=== PATIENT | female | born 2000 | race Caucasian/White ===

== ENCOUNTER 2025-09-23 11:32 | Emergency (ER) | payer SELFPAY ==
[2025-09-23 11:37] VITALS: BP 125/82; PULSE 103; TEMP 36.4; O2SAT 99; BMI 21.6
--- NOTE | 2025-09-23 11:50 | ED_ITS ---
HPI - Abdominal Pain General Chief Complaint: Abdominal Pain Stated Complaint: back pain Time Seen by Provider: 09/23/25 11:45 Source: patient Mode of arrival: walk-in Limitations: no limitations History of Present Illness HPI narrative: Patient mentioned that she has been having left lower quadrant pain for the last few days but over the last 24 hours started going to the left flank, no vomiting and no fever no chills Denies any diarrhea or constipation , and she mentioned that she has been hydrating well Related Data Previous Rx's ?Medication ?Instructions ?Recorded ciprofloxacin HCl 500 mg tablet 500 mg PO BID #14 tabs 09/23/25 Allergies Allergy/AdvReac Type Severity Reaction Status Date / Time No Known Drug Allergies Allergy Verified 09/23/25 11:36 Review of Systems ROS Status of ROS 10 or more systems reviewed and unremark able except as noted in history and below PFSH PFSH Social History Little interest or pleasure in doing things: not at all Feeling down, depressed, or hopeless: not at all Exam Narrative Exam Narrative: Nurses notes and vital signs reviewed and patient is not hypoxic. General: Well-appearing and in no apparent distress. Skin: Warm, dry, no pallor noted. No rash. Head: Normocephalic, atraumatic. Neck: Supple, non-tender. Eye: Pupils are equal, round and EOMI. No scleral icterus. Ears, Nose, Mouth, and Throat: TM are clear, no nasal mucosal hypertrophy. Oral mucosa is moist, no posterior oropharynx erythema, uvula is mid-line Cardiovascular: Regular Rate and Rhythm without murmur, gallop or rub. Respiratory: No accessory muscle use or respiratory distress. Lungs are clear to auscultation, no wheezing, rales or rhonchi Chest Wall: no tenderness Back: No midline thoracic or lumbar vertebral tenderness. No CVA tenderness Musculoskeletal: normal ROM, no calf or popliteal tenderness, no lower extremity edema/swelling GI: Abdomen is soft, non-distended. Normal bowel sounds. No masses appreciated. No significant tenderness on palpation of the left lower quadrant as well as the left flank Neurological: A&O x4. No cranial nerve dysfunction observed. No truncal ataxia. Moves all extremities. Sensation intact. Psychiatric: Cooperative and interactive. Normal mood and affect. Constitutional Vital Signs, click to edit/add: Last Vital Signs Temp 97.6 F 09/23/25 11:37 Pulse 103 H 09/23/25 11:37 Resp 18 09/23/25 11:37 BP 125/82 09/23/25 11:37 Pulse Ox 99 09/23/25 11:37 O2 Del Method Room Air 09/23/25 11:37 Course Vital Signs Vital signs: Vital Signs Temperature 97.6 F 09/23/25 11:37 Pulse Rate 103 H 09/23/25 11:37 Respiratory Rate 18 09/23/25 11:37 Blood Pressure 125/82 09/23/25 11:37 Pulse Oximetry 99 09/23/25 11:37 Oxygen Delivery Method Room Air 09/23/25 11:37 Temperature 97.6 F 09/23/25 11:37 Pulse Rate 103 H 09/23/25 11:37 Respiratory Rate 18 09/23/25 11:37 Blood Pressure 125/82 09/23/25 11:37 Pulse Oximetry 99 09/23/25 11:37 Oxygen Delivery Method Room Air 09/23/25 11:37 MDM - Abdominal Pain MDM Narrative Medical decision making narrative: The patient CBC and chemistry showed no acute pathology Urine is positive for UTI and the test was negative The CAT scan of the abdomen pelvis without contrast: No bowel obstruction or obstructive uropathy. The left ureter is mildly prominent with periureteral fat stranding. There is no evidence of obstructing stone. This may represent sequelae of an ascending urinary tract infection. No free fluid or free air. I did discuss the results with the patient I did describe to her that she need to make sure that she is not holding her urine which she mentioned that she does that usually at work because she have to wait to go to the bathroom I explained to her that right now she is putting herself at risk of pyelonephritis although right now there is no signs of systemic infection and the patient was started right away on ciprofloxacin She was instructed that in case of any fever or increasing pain she is to come back to the ER No leukocytosis no significant symptoms except for the pain , but the patient to come back in case of any worsening of symptoms including fever The patient to follow-up with the primary care within 2 to 3 days and to come back to the ER in case of any worsening of the current symptoms or any new symptoms or concerns Lab Data Labs: Lab Results 09/23/25 09/23/25 Range/Units 11:58 12:10 WBC 10.3 (4.0-11.0) 10^3/uL RBC 4.34 (4.20-5.40) 10^6/uL Hgb 13.1 (12.0-16.0) g/dL Hct 40.3 (36.0-48.0) % MCV 92.9 (81.0-99.0) fL MCH 30.2 (26.7-34.0) pg MCHC 32.5 (29.9-35.2) g/dL RDW 12.9 (11.0-15.0) % Plt Count 309 (150-450) 10^3/uL MPV 11.6 (9.5-13.5) fL Neut % (Auto) 77.6 H (43.0-75.0) % Lymph % (Auto) 13.1 L (20.5-60.0) % [place] % (Auto) 8.2 (1.7-12.0) % Eos % (Auto) 0.5 L (0.9-7.0) % Baso % (Auto) 0.4 (0.2-2.0) % Neut # (Auto) 8.0 H (1.4-6.5) 10^3/uL Lymph # (Auto) 1.4 (1.2-3.8) 10^3/uL [place] # (Auto) 0.9 H (0.3-0.8) 10^3/uL Eos # (Auto) 0.1 (0.0-0.7) 10^3/uL Baso # (Auto) 0.0 (0.0-0.1) 10^3/uL Abs Immat Gran (auto) 0.02 (0.00-0.03) 10^3/uL Imm/Tot Granulo (auto) 0.2 (0.0-0.5) % Sodium 140 (136-145) mmol/L Potassium 4.3 (3.5-5.1) mmol/L Chloride 107 (98-107) mmol/L Carbon Dioxide 24.2 (21.0-32.0) mmol/L Anion Gap 13.1 BUN 14.0 (7.0-18.0) mg/dL Creatinine 0.76 (0.55-1.02) mg/dL Est GFR ( Amer) >60 (>=60 mL/min/1.73m^2) Est GFR (Non-Af Amer) >60 (>=60 mL/min/1.73m^2) BUN/Creatinine Ratio 18.4 Glucose 95 (74-106) mg/dL Calcium 8.4 L (8.5-10.1) mg/dL Total Bilirubin 0.4 (0.2-1.0) mg/dL AST 10 L (15-37) U/L ALT 19 (14-59) U/L Alkaline Phosphatase 80 (46-116) U/L Total Protein 6.8 (6.4-8.2) g/dL Albumin 3.7 (3.4-5.0) g/dL Globulin 3.1 g/dL Albumin/Globulin Ratio 1.2 Serum HCG, Qual Negative (NEGATIVE) Urine Color Lt. yellow (YELLOW) Urine Clarity Sl cloudy (CLEAR) Urine pH 6.0 (5.0-9.0) Ur Specific [place] 1.025 (1.005-1.025) Urine Protein 100 A (NEG/TRACE) mg/dL Urine Glucose (UA) Negative (NEGATIVE) mg/dL Urine Ketones Negative (NEGATIVE) mg/dL Urine Occult Blood Large A (NEGATIVE) Urine Nitrite Negative (NEGATIVE) Urine Bilirubin Negative (NEGATIVE) Urine Urobilinogen 0.2 (0.2-1.0) EU/dL Ur Leukocyte Esterase Moderate A (NEGATIVE) Urine RBC 10-20 A (0-2) #/HPF Urine WBC 50-75 A (NONE SEEN) #/HPF Ur Squamous Epith Cells Few A (NONE/RARE) #/LPF Urine Crystals None seen (None Seen) #/HPF Urine Bacteria Moderate A (NONE SEEN) #/HPF Urine Casts None seen (NONE SEEN) #/LPF Urine Mucus None seen (NONE SEEN) [place] Discharge Chief Complaint: Abdominal Pain Clinical Impression: UTI (urinary tract infection) Patient Disposition: Home, Self-Care Time of Disposition Decision: 13:34 Condition: Good Mode of Transportation: Private Vehicle Prescriptions / Home Meds: New ciprofloxacin HCl 500 mg tablet 500 mg PO BID Qty: 14 0RF Print Language: Bangladeshi Instructions: Urinary Tract Infection in Women (DC) Referrals: Physician,Non-Staff, [Primary Care Provider] - 1 week Discharge Date/Time: 09/23/25 13:42
[2025-09-23] MEDS: KETOROLAC TROMETHAMINE 30 MG/ML VIAL IM (11:56)
--- OUTSIDE RECORDS SUMMARY | 2025-09-23 12:00 | XMS_ITS | Clinical Summary ---
Author Organization [facility] tem Address [id number] 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 10 tablet 03/05/2024ctive benzocaine-menthoL (CHLORASEPTIC SORE THROAT) 6-10 mg lozenge Dissolve 1 lozenge in the mouth every 2 (two) hours as needed for sore throat. 100 tablet 10/03/2024ctive Social History Tobacco UseTypesPacks/DayYears UsedDateSmoking Tobacco: NeverSmokeless Tobacco: Never Tobacco Cessation:Counseling Given: Not Answered Alcohol UseStandard Drinks/WeekCommentsNot Currently0 (1 standard drink = 0.6 oz pure alcohol)Hunger ScreeningAnswerDate RecordedWithin the past 12 months we worried whether our food would run out before we got money to buy more.Never True05/21/2025Within the past 12 months the food we bought just didn't last and we didn't have money to get more.Never True05/21/2025CommentsNoSex and Gender InformationValueDate RecordedSex Assigned at BirthNot on fileLegal Sex Yqtqlo2703/05/2024 1:11 AM EDTGender IdentityNot on fileSexual OrientationNot on file Last Filed Vital Signs Vital SignReadingTime TakenCommentsBlood Leqzqirq079/8905/21/2025 3:24 PM EDT Tljit33470/03/2025 3:24 PM DMAFhawfkdxrkf45.9 ??C (98.4 ??F)05/21/2025 3:24 PM EDTRespiratory Gxeu240005/21/2025 3:24 PM EDTOxygen Vrttofywpd42%05/21/2025 3:24 PM EDTInhaled Oxygen Concentration--Omkdbz28 kg (130 lb)05/21/2025 3:24 PM EDT Fqxqyh128.1 cm (5' 5 )05/21/2025 3:24 PM EDTBody Mass Index21.63005/21/2025 3:24 PM EDT Plan of Treatment Health MaintenanceDue DateLast DoneCommentsDepression Omuxmrwfo77/14/2015Pap Smear2023TaP,Tdap and Td Vaccines (7 - Td or Tdap)/, 03/03/2008, 03/22/2004, Additional history existsCOVID-19 Vaccine ( season)/Influenza Ukxbtyo31/, 08/28/2007, 10/26/2006, Additional history existsAdult BMI Elgozndqk05 Tobacco Fdvmreien01 Medical Devices Not on file Care Teams Team MemberRelationshipSpecialtyStart DateEnd Date No Pcp, [place] [id number] [facility]
--- OUTSIDE RECORDS SUMMARY | 2025-09-23 12:00 | XMS_ITS | Patient Health Record ---
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 Phone Juarez Bravo Primary Care Provider Reason For Referral No Information Medications Medication SIG (Take, Route, Frequency, Duration) Notes Start Date End Date Status Budesonide 32 MCG/ACT Suspension 1 spray in each nostril Nasally Once a day; Duration: 30 day(s) ActiveBactrim DS 800-160 mg 10 d DS 800-160 mg Tabletsone tab orally twice a day; Duration: 10 daysActive Social History Tobacco Use: Social History Observation Description Date Details (start date - stop date) Never Smoker NA - NA Social History GeneralSocial InfoQuestionAnswerNotesTransition of Care:ER/UC/hospital since last office visit?NoSubstance abuse/mental health issues of patient/family Patient -DeniesAbility to understand healthcare/treatmentPatient:GoodTobacco Screen:Are you a:never smokerSocial/Support Concerns:Patient:NoAlcohol Screening:Did you have a drink containing alcohol in the past year?NoPoints0 InterpretationNegativeBehaviors affecting healthPoor/Risky Behaviors:Denies- Communication Barrier:Language Barrier?:No Problems Problem Type SNOMED Code ICD Code Onset Dates Problem Status W/U Status Risk Notes Problem Unprotected sexual i ntercourse (8458493) Unprotected sexual intercourse (Z72.51) Activeconfirmed Plan Of Treatment No Information Insurance Providers Payer Name Payer Address Payer Phone Subscriber Number Group Number Insured Name Patient Relationship to Insured Coverage Start Date Coverage End Date [employer] [address] [address] [place] [phone] [id number] LUIS ALFREDO COLE Child - Insured has Financial Responsibility 0
[2025-09-23 12:21] LABS: Hematocrit 40.3 % (36.0-48.0); Hemoglobin 13.1 g/dL (12.0-16.0); Immature Granulocytes Abs Auto 0.02 10^3/uL (0.00-0.03); Immature Granulocytes Pct Auto 0.2 % (0.0-0.5); Lymphocytes Absolute Auto 1.4 10^3/uL (1.2-3.8); Mean Corpuscular HGB Conc 32.5 g/dL (29.9-35.2); Mean Corpuscular Hemoglobin 30.2 pg (26.7-34.0); Mean Corpuscular Volume 92.9 fL (81.0-99.0); Platelet Count 309 10^3/uL (150-450); Red Blood Count 4.34 10^6/uL (4.20-5.40); White Blood Count 10.3 10^3/uL (4.0-11.0)
[2025-09-23 12:23] LABS: Glucose Urine UA NEGATIVE (NEGATIVE)
[2025-09-23 12:33] LABS: Alanine Aminotransferase 19 U/L (14-59); Albumin Globulin Ratio 1.2; Albumin Level 3.7 g/dL (3.4-5.0); Alkaline Phosphatase 80 U/L (46-116); Anion Gap 13.1; Aspartate Amino Transferase 10 U/L (15-37); Blood Urea Nitrogen 14.0 mg/dL (7.0-18.0); Calcium 8.4 mg/dL (8.5-10.1); Carbon Dioxide 24.2 mmol/L (21.0-32.0); Chloride 107 mmol/L (98-107); Estimated GFR (African America >60 (>=60 mL/min/1.73m^2); Estimated GFR (Non-African Ame >60 (>=60 mL/min/1.73m^2); Globulin 3.1 g/dL; Glucose 95 mg/dL (74-106); Potassium 4.3 mmol/L (3.5-5.1); Sodium 140 mmol/L (136-145); Total Protein 6.8 g/dL (6.4-8.2)
--- NOTE | 2025-09-23 12:36 | CT_ITS ---
[address] [address] Patient Name: NESTOR NOLASCO MRN: [id number] date: 2000 Sex: F Assigned Patient Location: ER Current Patient Location: ER Accession/Order Number: [id number] Exam Date: 09/23/2025 12:43 Report Date: 09/23/2025 13:26 At the request of: EMILIANO ROMERO MD Procedure: CT abdomen pelvis wo con CT abdomen pelvis wo con 09/23/2025 12:49 PM SIGNS AND SYMPTOMS: ^left flank pain TECHNIQUE: Multidetector ct axial images of the abdomen and pelvis were obtained without IV contrast. Multiplanar reformats were performed and reviewed to further define anatomy and possible pathology. CT was performed with one or more of the following dose reduction techniques: Automated exposure control, adjustment of the mA and/or kV according to patient size, or use of iterative reconstruction technique. COMPARISON: None. FINDINGS: Lower Chest: Within normal limits. ABDOMEN: Liver: Within normal limits. Bile Ducts: Normal caliber. Gallbladder: No calcified gallstones. Normal caliber wall. Pancreas: Within normal limits. Spleen: Within normal limits. Adrenals: Within normal limits. Kidneys: Within normal limits. Pelvis: Reproductive Organs: No pelvic masses. Ureters: The left ureter is mildly prominent with periureteral fat stranding. There is no evidence of obstructing stone. This may represent sequelae of an ascending urinary tract infection. Bladder: Within normal limits. Bowel: Normal caliber. There is a normal appendix in the right lower quadrant. Mesenteric Lymph Nodes: No enlarged mesenteric lymph nodes. Peritoneum: No ascites or free air, no fluid collection. Vessels: within normal limits Retroperitoneum: Within normal limits. Abdominal Wall: Within normal limits. Bones: Within normal limits. CT/CT abdomen pelvis wo con IMPRESSION: No bowel obstruction or obstructive uropathy. The left ureter is mildly prominent with periureteral fat stranding. There is no evidence of obstructing stone. This may represent sequelae of an ascending urinary tract infection. No free fluid or free air. Impression dictated by: Holger Flanagan M.D. 09/23/2025 1:26 PM Dictation Location: [place] [address] Electronically authenticated by: [id number] Y Date: 09/23/2025 13:26
[2025-09-23 12:44] LABS: Cast Seen? NONE SEEN #/LPF (NONE SEEN); Crystals Seen? None Seen #/HPF (None Seen); Urine Culture Indicated YES-FRMC
[2025-09-23] MEDS: CIPROFLOXACIN HCL 500 MG TABLET PO (13:38)
== END 2025-09-23 13:42 | disposition home or self-care (01) ==
PROVIDERS: Emergency Provider Emergency Medicine; Family Provider Pediatrics
DX: N39.0 Urinary tract infection, site not specified (principal)
CPT/HCPCS: 36415; 74176; 80053; 81001; 84703; 85025; 87086; 87088; 87186; 96372; 99284; J1885